=== PATIENT | female | born 1945 | race Caucasian/White ===

== ENCOUNTER 2018-02-17 06:16 | Emergency (ER) | payer MEDICARE, BC, MEDICAID ==
[2018-02-17 06:59] LABS: ADD UMIC NO; UR ASCORBIC ACID 40 mg/dL (NEGATIVE); UR BILIRUBIN (Dip) NEGATIVE (NEGATIVE); UR BLOOD (Dip) NEGATIVE (NEGATIVE); UR CLARITY CLEAR (CLEAR); UR COLOR YELLOW (YELLOW); UR GLUCOSE (Dip) NEGATIVE (NEGATIVE); UR KETONES (Dip) NEGATIVE (NEGATIVE); UR LEUKOCYTE ESTERASE (Dip) NEGATIVE Leu/ul (NEGATIVE); UR NITRITE (Dip) NEGATIVE (NEGATIVE); UR SPECIFIC GRAVITY (Dip) 1.014 (1.003-1.030); UR TOTAL PROTEIN (Dip) NEGATIVE (NEGATIVE); UR UROBILINOGEN (Dip) NEGATIVE (NEGATIVE)
[2018-02-17] MEDS: morphine 4 MG/ML VIAL IV (07:16)
[2018-02-17] MEDS: SOD CHLORIDE 0.9% 1,000 ML IV (07:16)
[2018-02-17 07:56] LABS: ADD MAN DIFF? NO
[2018-02-17 07:59] LABS: BASOPHIL # 0.1 10^3/ul (0.0-0.1); BASOPHILS % 0.4 % (0.0-2.0); EOSINOPHILS # 0.8 10^3/ul (0.0-0.5); EOSINOPHILS % 6.4 % (0.0-7.0); HEMATOCRIT 32.3 % (37.0-47.0); HEMOGLOBIN 10.5 g/dl (12.0-16.0); LYMPHOCYTES # 2.7 10^3/ul (0.8-2.9); LYMPHOCYTES % 20.8 % (15.0-51.0); MEAN CORPUSCULAR HEMOGLOBIN 30.1 pg (29.0-33.0); MEAN CORPUSCULAR HGB CONC 32.5 g/dl (32.0-37.0); MEAN CORPUSCULAR VOLUME 92.6 fl (82.0-101.0); MEAN PLATELET VOLUME 10.1 fl (7.4-10.4); MONOCYTES % 7.6 % (0.0-11.0); NEUTROPHIL # 8.3 10^3/ul (1.6-7.5); NEUTROPHILS % 63.7 % (39.0-77.0); PLATELET COUNT 197 10^3/UL (140-415); RED BLOOD COUNT 3.49 10^6/ul (4.20-5.40)
[2018-02-17 08:20] LABS: INR 1.03; PARTIAL THROMBOPLASTIN TIME 27.1 Sec (25.0-35.0); PROTIME 13.6 Sec (11.9-14.9); PT RATIO 1.1
[2018-02-17 08:24] LABS: ALANINE AMINOTRANSFERASE 26 IU/L (13-69); ALBUMIN 3.4 g/dl (3.3-4.9); ALBUMIN/GLOBULIN RATIO 1.17; ALKALINE PHOSPHATASE 50 IU/L (42-121); ANION GAP 13 (8-16); ASPARTATE AMINO TRANSFERASE 19 IU/L (15-46); BILIRUBIN,INDIRECT 0.4 mg/dl (0-1.1); BILIRUBIN,TOTAL 0.4 mg/dl (0.2-1.3); BLOOD UREA NITROGEN 29 mg/dl (7-20); CARBON DIOXIDE 27 mmol/L (21-31); CHLORIDE 106 mmol/L (97-110); CREATININE 0.84 mg/dl (0.44-1.00); GLUCOSE 100 mg/dl (70-220); SODIUM 142 mmol/L (135-144); TOTAL PROTEIN 6.3 g/dl (6.1-8.1)
[2018-02-17 08:36] LABS: TROPONIN-I < 0.012 ng/ml (0.000-0.120)
== END 2018-02-17 14:41 | disposition short-term general hospital (02) ==
LOC: E/R 06:16
DX: S40.022A Contusion of left upper arm, initial encounter (principal); R55 Syncope and collapse; E86.0 Dehydration; I10 Essential (primary) hypertension; W18.30XA Fall on same level, unspecified, initial encounter; Y92.9 Unspecified place or not applicable; Z94.1 Heart transplant status; Z79.82 Long term (current) use of aspirin
CPT/HCPCS: 36415; 70450; 71045; 72170; 73060; 73502; 73510; 80053; 81003; 84484; 85025; 85610; 85730; 93005; 96374; 99291-25

== ENCOUNTER 2018-03-25 11:13 | Emergency (ER) | payer MEDICARE, BC, MEDICAID ==
[2018-03-25 11:47] LABS: ADD MAN DIFF? NO
[2018-03-25 11:51] LABS: BASOPHILS % 0.2 % (0.0-2.0); EOSINOPHILS # 0.2 10^3/ul (0.0-0.5); EOSINOPHILS % 1.4 % (0.0-7.0); HEMATOCRIT 34.1 % (37.0-47.0); HEMOGLOBIN 11.3 g/dl (12.0-16.0); LYMPHOCYTES # 1.9 10^3/ul (0.8-2.9); LYMPHOCYTES % 11.1 % (15.0-51.0); MEAN CORPUSCULAR HEMOGLOBIN 29.4 pg (29.0-33.0); MEAN CORPUSCULAR HGB CONC 33.1 g/dl (32.0-37.0); MEAN CORPUSCULAR VOLUME 88.6 fl (82.0-101.0); MEAN PLATELET VOLUME 10.1 fl (7.4-10.4); MONOCYTE # 1.4 10^3/ul (0.3-0.9); MONOCYTES % 8.2 % (0.0-11.0); NEUTROPHIL # 13.7 10^3/ul (1.6-7.5); NEUTROPHILS % 78.1 % (39.0-77.0); PLATELET COUNT 287 10^3/UL (140-415); RED BLOOD COUNT 3.85 10^6/ul (4.20-5.40)
[2018-03-25 11:51] LABS: WHITE BLOOD COUNT 17.5 10^3/ul (4.8-10.8)
[2018-03-25 12:16] LABS: ALANINE AMINOTRANSFERASE 18 IU/L (13-69); ALBUMIN/GLOBULIN RATIO 1.14; ALKALINE PHOSPHATASE 73 IU/L (42-121); ANION GAP 18 (8-16); ASPARTATE AMINO TRANSFERASE 21 IU/L (15-46); BILIRUBIN,INDIRECT 0.4 mg/dl (0-1.1); BILIRUBIN,TOTAL 0.4 mg/dl (0.2-1.3); BLOOD UREA NITROGEN 29 mg/dl (7-20); CALCIUM 9.2 mg/dl (8.4-10.2); CARBON DIOXIDE 23 mmol/L (21-31); CHLORIDE 104 mmol/L (97-110); CREATININE 0.91 mg/dl (0.44-1.00); GLUCOSE 99 mg/dl (70-220); LIPASE 18 U/L (23-300); POTASSIUM 4.3 mmol/L (3.5-5.1); SODIUM 141 mmol/L (135-144); TOTAL PROTEIN 7.5 g/dl (6.1-8.1)
[2018-03-25 12:19] LABS: ADD UMIC YES; UR ASCORBIC ACID 40 mg/dL (NEGATIVE); UR BACTERIA MODERATE /HPF (NONE SEEN); UR BILIRUBIN (Dip) NEGATIVE (NEGATIVE); UR BLOOD (Dip) NEGATIVE (NEGATIVE); UR CLARITY CLOUDY (CLEAR); UR COLOR AMBER (YELLOW); UR GLUCOSE (Dip) NEGATIVE (NEGATIVE); UR KETONES (Dip) 1+ mg/dL (NEGATIVE); UR LEUKOCYTE ESTERASE (Dip) 3+ Leu/ul (NEGATIVE); UR MUCUS MODERATE /HPF (NONE SEEN); UR NITRITE (Dip) NEGATIVE (NEGATIVE); UR RBC 15 /HPF (0-5); UR RENAL EPITHELIAL CELL FEW /HPF (NONE SEEN); UR SPECIFIC GRAVITY (Dip) 1.024 (1.003-1.030); UR SQUAMOUS EPITHELIAL CELL FEW /HPF (FEW); UR TOTAL PROTEIN (Dip) 1+ mg/dl (NEGATIVE); UR UROBILINOGEN (Dip) NEGATIVE (NEGATIVE); UR WBC 104 /HPF (0-5)
[2018-03-25] MEDS: IOHEXOL 300MG/ML 150 ML BTL (12:31)
[2018-03-25] MEDS: SOD CHLORIDE 0.9% 100 ML (12:31)
[2018-03-25] MEDS: CEFTRIAXONE 1 GM/50 ML (PMX) 50 ML IVPB (13:25)
[2018-03-25] MEDS: SODIUM CHLORIDE 0.9% 1L BAG IV* (13:25)
[2018-03-25 13:54] LABS: LACTIC ACID 1.1 mmol/L (0.5-2.0)
[2018-03-25] MEDS: metroNIDAZOLE 500 MG/NS (PMX) 100 ML IVPB (15:05)
[2018-03-25 15:29] LABS: LACTIC ACID 0.9 mmol/L (0.5-2.0)
[2018-03-25 19:42] LABS: LACTIC ACID 0.9 mmol/L (0.5-2.0)
[2018-03-25] MEDS: TACROLIMUS 1 MG CAP PO (19:45)
[2018-03-25] MEDS: predniSONE 5 MG TAB PO (19:46)
== END 2018-03-25 20:39 | disposition short-term general hospital (02) ==
LOC: E/R 20:39
DX: A41.9 Sepsis, unspecified organism (principal); N30.01 Acute cystitis with hematuria; D72.829 Elevated white blood cell count, unspecified; K83.1 Obstruction of bile duct; E86.0 Dehydration; K52.9 Noninfective gastroenteritis and colitis, unspecified; R65.20 Severe sepsis without septic shock; D64.9 Anemia, unspecified; I10 Essential (primary) hypertension; I50.9 Heart failure, unspecified; Z79.82 Long term (current) use of aspirin
CPT/HCPCS: 36415; 74177; 80053; 81001; 83605; 83690; 85025; 87040; 93005; 96361; 96365; 96367; 99291-25